=== PATIENT | female | born 1945 | race Caucasian/White ===

== ENCOUNTER 2018-02-27 08:56 | Day surgery (SDC) | payer OTHER ==
[2018-02-14 13:38] VITALS: BMI 32.3
[2018-02-27] MEDS ORDERED: BUPIVACAINE HCL/PF 0.5% (5MG/ML) 10 ML VIAL ONE (11:18)
[2018-02-27] MEDS ORDERED: MIDAZOLAM HCL 2 MG/2 ML SINGLE DOSE VIAL ONE (11:19)
[2018-02-27] MEDS ORDERED: PROPOFOL 20 ML ONE ×2 (11:31)
[2018-02-27] MEDS ORDERED: DEXAMETHASONE SOD PHOSPHATE 4 MG/1 ML VIAL ONE (11:34)
[2018-02-27] MEDS ORDERED: ONDANSETRON 4 MG/2 ML VIAL ONE (11:34)
[2018-02-27 12:23] VITALS: TEMP 98
[2018-02-27 13:02] VITALS: PULSE 67
[2018-02-27 13:31] VITALS: BP 130/70
[2018-02-27] MEDS ORDERED: oxyCODONE HCL 5 MG TABLET PO PRN (14:53)
--- NOTE | 2018-03-03 11:39 | OP ---
DATE OF OPERATION: 02/27/2018 PREOPERATIVE DIAGNOSIS: Right carpal tunnel syndrome. POSTOPERATIVE DIAGNOSIS: Right carpal tunnel syndrome. OPERATIVE PROCEDURE: Right carpal tunnel release. ANESTHESIA: Local with sedation. COMPLICATIONS: None. ESTIMATED BLOOD LOSS: Minimal. INDICATION FOR PROCEDURE: The patient is a 72-year-old female with the above finding indicated for operative treatment. Risks, benefits, alternatives were discussed with the patient at length and proper informed consent was obtained. PROCEDURE: After proper identification of the patient and correct operative site, the patient was brought to the operating room and placed supine on the operating table with prominences well-padded. Sedation was given by the anesthesiologist and local anesthesia was given with 2% lidocaine. The right upper extremity was prepped and draped in the usual sterile fashion and a well-padded tourniquet was placed over the sterile prep. Esmarch bandage was used to exsanguinate the right upper extremity and the tourniquet was inflated to 250 mmHg. A longitudinal incision was made over the proximal aspect of the palm. The incision was taken sharply through the skin with blunt and sharp dissection through the subcutaneous tissues. Palmar fascia was divided longitudinally and the transcarpal ligament was divided longitudinally, along with the distal 4 cm of the antebrachial fascia under direct visualization with Loupe magnification. This provided complete release of the median nerve of the wrist. The wound was irrigated with saline and repaired with a 5-0 nylon suture. The patient was brought to the recovery room in stable condition. She tolerated the procedure well. Db [id number]
== END 2018-02-27 13:30 | disposition home or self-care (01) ==
LOC: FASU 08:56
PROVIDERS: ATTEND Orthopaedic Surgery Hand Surgery
PROC: 01N50ZZ Release Median Nerve, Open Approach (ICD-10-PCS; principal; 2018-02-27 11:47)
DX: G56.01 Carpal tunnel syndrome, right upper limb (principal)